=== PATIENT | female | born 1990 ===

== ENCOUNTER 2024-07-08 09:47 | Outpatient (CLI) | payer OTHER | END 2024-07-09 11:14 | disposition home or self-care (01) | LOC: TOM 09:47 | DX: N93.8 Other specified abnormal uterine and vaginal bleeding (principal) ==

== ENCOUNTER 2024-09-24 10:25 | Outpatient (CLI) | payer OTHER | END 2024-09-24 10:26 | disposition home or self-care (01) | LOC: PRENATAL 10:25 | PROVIDERS: ATTEND Obstetrics & Gynecology Maternal & Fetal Medicine | DX: O36.80X0 Pregnancy with inconclusive fetal viability, not applicable or unspecified (principal); Z36.82 Encounter for antenatal screening for nuchal translucency; O34.219 Maternal care for unspecified type scar from previous cesarean delivery; Z14.8 Genetic carrier of other disease; Z3A.12 12 weeks gestation of pregnancy ==

== ENCOUNTER 2024-11-19 10:00 | Outpatient (CLI) | payer OTHER | END 2024-11-19 10:04 | disposition home or self-care (01) | LOC: PRENATAL 10:00 | PROVIDERS: ATTEND Obstetrics & Gynecology Maternal & Fetal Medicine | DX: O35.3XX0 Maternal care for (suspected) damage to fetus from viral disease in mother, not applicable or unspecified (principal); O44.00 Complete placenta previa NOS or without hemorrhage, unspecified trimester; O34.219 Maternal care for unspecified type scar from previous cesarean delivery; Z3A.20 20 weeks gestation of pregnancy ==

== ENCOUNTER → 2025-02-11 10:43 | Outpatient (CLI) | payer OTHER | END | disposition home or self-care (01) | LOC: PRENATAL 10:43 | PROVIDERS: ATTEND Obstetrics & Gynecology Maternal & Fetal Medicine | DX: O26.849 Uterine size-date discrepancy, unspecified trimester (principal); O36.8199 Decreased fetal movements, unspecified trimester, other fetus; O34.219 Maternal care for unspecified type scar from previous cesarean delivery; O24.419 Gestational diabetes mellitus in pregnancy, unspecified control; Z3A.33 33 weeks gestation of pregnancy ==

== ENCOUNTER 2025-02-22 10:42 | Outpatient (CLI) | payer OTHER | END 2025-02-22 11:50 | disposition home or self-care (01) | LOC: NST 10:42 | PROVIDERS: ATTEND General Practice | DX: Z34.83 Encounter for supervision of other normal pregnancy, third trimester (principal) ==

== ENCOUNTER → 2025-03-05 | Outpatient (CLI) | payer OTHER | END | disposition home or self-care (01) | LOC: NST 13:10 | PROVIDERS: ATTEND General Practice | DX: Z34.83 Encounter for supervision of other normal pregnancy, third trimester (principal) ==

== ENCOUNTER 2025-03-15 10:46 | Outpatient (CLI) | payer OTHER | END 2025-03-15 10:48 | disposition home or self-care (01) | LOC: PRENATAL 10:46 | PROVIDERS: ATTEND Obstetrics & Gynecology Maternal & Fetal Medicine | DX: O26.849 Uterine size-date discrepancy, unspecified trimester (principal); O36.8199 Decreased fetal movements, unspecified trimester, other fetus; O34.219 Maternal care for unspecified type scar from previous cesarean delivery; O24.419 Gestational diabetes mellitus in pregnancy, unspecified control; Z3A.37 37 weeks gestation of pregnancy ==

== ENCOUNTER 2025-03-21 10:45 | Inpatient (IN) | payer OTHER ==
[~2025-03-21] VITALS: Ht 160 cm; Wt 3.2 kg
[2025-03-21 13:44] LABS: URINE APPEARANCE Clear; URINE BILIRRUBIN Negative (NEGATIVE); URINE BLOOD Negative; URINE COLOR Yellow; URINE GLUCOSE Negative (NEGATIVE); URINE KETONE Negative (NEGATIVE); URINE LEUKOCYTE Negative; URINE NITRATE Negative; URINE PROTEIN Negative (NEGATIVE); URINE UROBILINOGEN 0.2 E.U./dl
[2025-03-21 13:45] LABS: URINE BACTERIA 205.5 uL (0.0-1933); URINE EPITHELIAL CELLS 34.1 uL (0.0-38.8); URINE WBC 10.1 uL (0.0-23.2)
[2025-03-21 13:48] LABS: URINE CAST 0.14 uL (0.0-1.40)
[2025-03-21 13:50] LABS: BASO % 0.1 % (0.1-1.2); EOS # 0.06 (0.04-0.54); EOS % 0.6 % (0.7-7.0); HEMATOCRIT 34.6 % (34.1-44.9); LYMPH # 1.79 (1.18-3.74); LYMPH % 17.7 % (19.3-53.1); MEAN CORPUSCULAR HEMOGLOBIN 29.5 pg (25.6-32.2); MONO # 0.53 (0.24-0.82); MONO % 5.2 % (4.7-12.5); NEUT # 7.68 (1.56-6.13); NEUT % 75.7 % (34.0-71.1); PLATELET COUNT 205 K/uL (163-369); RED BLOOD COUNT 4.07 M/uL (3.93-5.22); RED CELL DISTRIBUTION WIDTH 13.4 % (11.6-14.4)
[2025-03-21 14:08] LABS: INR < 0.93; PARTIAL THROMBOPLASTIN TIME 25.2 SECONDS (22.0-34.0); PROTHROMBIN TIME 10.1 SECONDS (9.0-11.5)
[2025-03-21 14:32] LABS: ALBUMIN 2.6 gm/dL (3.4-5.0); BILIRUBIN TOTAL 0.23 mg/dL (0.3-1.2); CALCIUM 8.9 mg/dL (8.5-10.1); CREATININE SERUM 0.48 mg/dL (0.55-1.02); GFR 148.04; GLOBULINA 3.8 G/DL (2.4-3.5); POTASSIUM 4.23 mEq/L (3.5-5.1); TOTAL PROTEIN 6.4 gm/dL (6.4-8.2)
[2025-03-28 10:30] VITALS: BP 112/75
[2025-03-28] MEDS ORDERED: PRENATAL TABLE1 EAC1 PO (11:13)
[2025-03-28] MEDS ORDERED: HUMULIN N100 UNIT/2 SUBCUTANEO (11:14)
[2025-03-28 12:40] VITALS: BP 104/70
[2025-03-28] MEDS ORDERED: KETOROLAC TROMETHAMINE 30 MG VIAL ONE (17:58)
[2025-03-28 18:42] VITALS: BP 113/66
[2025-03-28] MEDS ORDERED: MORPHINE SULFATE 4 MG/ML CARTRIDGE IV PRN (20:00)
[2025-03-29 00:55] VITALS: BP 102/62
[2025-03-29] MEDS ORDERED: KETOROLAC TROMETHAMINE 30 MG VIAL IV SCH (01:00)
[2025-03-29 06:54] LABS: HEMATOCRIT 31.9 % (34.1-44.9); HEMOGLOBIN 10.8 g/dL (11.2-15.7); MEAN CORPUSCULAR HEMOGLOBIN 29.3 pg (25.6-32.2); RED BLOOD COUNT 3.68 M/uL (3.93-5.22); RED CELL DISTRIBUTION WIDTH 13.6 % (11.6-14.4)
[2025-03-29 06:57] LABS: EOS % 0.5 % (0.7-7.0); LYMPH % 16.8 % (19.3-53.1); NEUT % 76.9 % (34.0-71.1); PLATELET COUNT 158 K/uL (163-369)
[2025-03-29 06:58] LABS: BASO % 0.2 % (0.1-1.2); EOS # 0.05 (0.04-0.54); LYMPH # 1.82 (1.18-3.74); MONO # 0.54 (0.24-0.82); NEUT # 8.36 (1.56-6.13)
[2025-03-29 08:00] VITALS: BP 108/69
[2025-03-29] MEDS ORDERED: IBUprofen 400 MG TABLET PO ONE (08:11)
[2025-03-29] MEDS ORDERED: OxyCODONE HCL 5 MG TABLET (ROXICODONE) PO PRN (08:45)
[2025-03-29] MEDS ORDERED: SIMETHICONE 125 MG CAPSULE PO SCH (09:00)
[2025-03-29] MEDS ORDERED: DOCUSATE SODIUM 100MG CAP PO SCH (09:00)
[2025-03-29] MEDS ORDERED: IBUprofen 800 MG TABLET PO SCH (11:00)
[2025-03-29] MEDS ORDERED: ACETAMINOPHEN 325 MG TABLET PO SCH (12:00)
[2025-03-29 15:54] VITALS: BP 117/73
[2025-03-30 00:36] VITALS: BP 105/67
[2025-03-30 09:14] VITALS: BP 121/80; O2SAT 99
== END 2025-03-30 15:16 | disposition home or self-care (01) | DRG 788 ==
LOC: LDR 03-28 07:00 → OB/GYN 03-28 12:25
PROVIDERS: ADMIT Obstetrics & Gynecology; ATTEND Obstetrics & Gynecology
PROC: 4A1HXCZ Monitoring of Products of Conception, Cardiac Rate, External Approach (ICD-10-PCS; 2025-03-28)
PROC: 10D00Z1 Extraction of Products of Conception, Low, Open Approach (ICD-10-PCS; principal; 2025-03-28 15:15)
DX: O24.424 Gestational diabetes mellitus in childbirth, insulin controlled (principal); O33.8 Maternal care for disproportion of other origin; O99.824 Streptococcus B carrier state complicating childbirth; O34.211 Maternal care for low transverse scar from previous cesarean delivery; Z3A.38 38 weeks gestation of pregnancy; Z37.0 Single live birth

== ENCOUNTER 2025-03-21 13:51 | Outpatient (CLI) | payer OTHER | END 2025-03-21 15:41 | disposition home or self-care (01) | LOC: NST 13:51 | PROVIDERS: ATTEND Obstetrics & Gynecology | DX: Z3A.37 37 weeks gestation of pregnancy (principal) ==